=== PATIENT | male | born 1980 | race Caucasian/White ===

== ENCOUNTER 2021-02-15 01:49 | Emergency (ER) | payer OTHER ==
[~2021-02-15] VITALS: Ht 190.5 cm; Wt 104.3 kg
== END 2021-02-15 03:17 | disposition home or self-care (01) ==
LOC: ER 01:49
DX: S93.402A Sprain of unspecified ligament of left ankle, initial encounter (principal); X50.1XXA Overexertion from prolonged static or awkward postures, initial encounter
CPT/HCPCS: 73610; 99283-25